=== PATIENT | female | born 1990 | race Caucasian/White ===

== ENCOUNTER 2017-01-05 12:44 | Outpatient (CLI) | payer OTHER ==
[~2017-01-05 12:44] MED LIST: CEPHALEXIN500 MG PO; CORRECTOL100 MG PO; IBUPROFEN200 M1 PO; LANSINOH0.25 GM TOP; OXYCODONE/ACETA1 TA1 PO; [UNRECOGNIZED DRUG - OTHER] PO
--- NOTE | 2017-01-05 13:19 | DIAGNOSTIC IMAGING REPORT ---
PROCEDURE: US OB 1ST TRIMESTER W/TRANSVAG INDICATION: SIZE AND DATES TECHNIQUE: Bey scale, color, and spectral Doppler transabdominal sonographic images of the first trimester gravid uterus were obtained. COMPARISON: None. FINDINGS: TRANSABDOMINAL SCANS: The gravid uterus is normal in position and contains a fundal gestational sac with a moderate residual response. No perigestational hemorrhage. The cervix is closed. A pole with an average crown-rump length of 1.3 cm is present. There is detectable cardiac activity in the fetus in a rate of 149 beats per minute. A yolk sac was visible. IMPRESSION: 1. Single living intrauterine with gestational age of 7 weeks and 4 days and estimated due date of 08/20/2017 2. Closed cervix and no perigestational hemorrhage.
== END 2017-01-05 23:00 ==
LOC: US SRH 12:44
DX: Z34.91 Encounter for supervision of normal pregnancy, unspecified, first trimester (principal); Z3A.01 Less than 8 weeks gestation of pregnancy

== ENCOUNTER 2017-03-25 07:58 | Outpatient (CLI) | payer OTHER ==
--- NOTE | 2017-03-25 10:40 | DIAGNOSTIC IMAGING REPORT ---
PROCEDURE: US OB DETAILED ANATOMIC INDICATION: ANATOMY TECHNIQUE: Bey scale, color, and spectral Doppler images of the second trimester gravid uterus were obtained. COMPARISON: Ultrasound study 01/05/2017 FINDINGS: A single living intrauterine is in vertex presentation. There is regular cardiac activity at a rate of 141 beats per minute. The placenta is anterior and away from the internal cervical os. The cervix is closed measuring approximately 4.1 cm in length. The amniotic fluid volume is subjectively normal. Biparietal diameter 3.9 cm of 17 weeks and 6-day Head circumference 16.0 cm of 18 weeks and 6 days Abdominal circumference 12.8 cm of 18 weeks and 3-day Femur length 2.8 cm of 18 weeks and 4-day Head to abdominal circumference ratio and femur length to abdominal circumference ratios are normal. Estimated weight 241 g Composite gestational age 18 weeks and 3 days, ASHLEIGH 08/23/2017 There was visualization of a number of normal structures including the intracranial contents, facial features, nuchal region, spine, four-chamber heart and outflow tracts to the extent that could be visualized, diaphragm, fluid-filled stomach, kidneys, abdomen, urinary bladder, upper and lower extremities, and genitals. A three-vessel umbilical cord, normal and placental cord insertion sites were seen. IMPRESSION: 1. Single living intrauterine with a composite gestational age of 18 weeks and 3 days, ASHLEIGH 08/23/2017 2. Symmetric and normal anatomy.
== END 2017-03-25 23:00 | disposition home or self-care (01) ==
LOC: US SRH 07:58
DX: Z34.92 Encounter for supervision of normal pregnancy, unspecified, second trimester (principal); Z3A.18 18 weeks gestation of pregnancy